=== PATIENT | male | born 1980 | race Two or more races ===

== ENCOUNTER 2020-11-01 04:09 | Emergency (ER) | payer SELFPAY ==
[~2020-11-01] VITALS: Ht 162.6 cm; Wt 79.4 kg
--- NOTE | 2020-11-01 04:10 | NUR ---
PT [id number] WITH [employer] B[employer]AR[employer] BEHAVIOR, WALKING IN THE STREET NAKED, CURSING NAD TALKING TO SELF. RESPIRATIONS EVEN AND UNLABORED ON RA W/ NAD NOTED. PT CHANGED INTO GOWN, BELONGINGS PLACED TO LOCKER. SITTER AT BEDSIDE FOR SAFETY.
[2020-11-01] MEDS ORDERED: LIDOCAINE 2% JEL UROJET 10 ML MM ONE ×2 (04:21→04:30)
--- NOTE | 2020-11-01 04:22 | NUR ---
DYNAMIC BALANCER SET UP WORKER AT BEDSIDE FOR BLOOD DRAW
[2020-11-01 04:28] LABS: BASOPHILS % (AUTO) 0.6 % (0.0-2.0); EOSINOPHILS % (AUTO) 2.2 % (0.0-6.0); HEMATOCRIT 42 % (39-51); LYMPHOCYTES # (AUTO) 1.1 /CMM (0.8-4.8); MEAN CORPUSCULAR HGB CONC 33 g/dl (31.0-36.0); MEAN CORPUSCULAR VOLUME 89 fL (80-96); MONOCYTES # (AUTO) 0.5 /CMM (0.1-1.30); MONOCYTES % (AUTO) 7.1 % (2.0-12.0); NEUTROPHILS # (AUTO) 5.1 /CMM (1.8-8.9); NEUTROPHILS % (AUTO) 74.1 % (43.0-81.0); PLATELET COUNT (AUTO) 437 /CMM (150-450); RED BLOOD CELL COUNT(AUTO) 4.75 MIL/uL (4.5-6.0); WHITE BLOOD COUNT (AUTO) 6.8 K/uL (4.3-11.0)
[2020-11-01 04:35] LABS: CALCIUM, SERUM 8.8 mg/dL (8.5-10.1); CARBON DIOXIDE 24 mmol/L (21-32); CHLORIDE 104 mmol/L (98-107); CREATININE 0.5 mg/dL (0.6-1.3); GLUCOSE 99 mg/dL (74-106); POTASSIUM 3.9 mmol/L (3.5-5.1); SODIUM SERUM 139 mmol/L (136-145); UREA NITROGEN, BLOOD 12 mg/dL (7-18)
[2020-11-01 04:41] LABS: ACETAMINOPHEN < 10 ug/ml (10-30); ALANINE AMINOTRANSFERASE 53 U/L (12-78); ALBUMIN 3.7 g/dL (3.4-5.0); ALCOHOL, BLOOD < 3 mg/dL (0-0); ALKALINE PHOSPHATASE 122 U/L (46-116); ASPARTATE AMINOTRANSFERASE 30 U/L (15-37); BILIRUBIN,DIRECT 0.2 mg/dL (0.0-0.2); BILIRUBIN,TOTAL 0.7 mg/dL (0.2-1.0); TOTAL PROTEIN, SERUM 7.3 g/dL (6.4-8.2)
[2020-11-01 05:49] LABS: BILIRUBIN,URINE Negative (NEGATIVE); BLOOD, URINE Negative Ery/uL (NEGATIVE); COLOR,URINE YELLOW (YELLOW); LEUKOCYTE ESTERASE ,URINE Negative (NEGATIVE); NITRITE, URINE Negative (NEGATIVE); PROTEIN,URINE Negative (NEGATIVE); UGLUCOSE Negative (NEGATIVE)
--- NOTE | 2020-11-01 05:50 | NUR ---
PT DENIES SI AND HI. PT DENIES BEING HOMELESS. CLOTHES PROVIDED TO THE PT. PT AMBULATED OUT OF E.D. DID NOT WANT TO WAIT FOR DISCHRAGE PAPERWORK.
--- NOTE | 2020-11-01 06:01 | NUR ---
PATIENT IS [id number]. PATIENT DENIES SI/ HI. MD NOTIFIED.
[2020-11-01 06:06] LABS: BACTERIA,URINE None seen /HPF (None Seen); RBC,URINE 0-2 /HPF (0-2); SQUAMOUS EPITHELIAL CELL,UR Few /HPF (None Seen); WBC,URINE 0-2 /HPF (0-3)
[2020-11-01 06:09] VITALS: BP 129/79
--- NOTE | 2020-11-01 06:09 | NUR ---
PATIENT PROVIDED CLOTHINGS.
--- NOTE | 2020-11-01 06:09 | NUR ---
Patient discharged to home in stable condition. Written and verbal after care instructions given. Patient verbalizes understanding of instruction.
== END 2020-11-01 06:09 | disposition home or self-care (01) ==
LOC: EDBD 04:12 → ER 04:12
DX: R46.2 Strange and inexplicable behavior (principal)
CPT/HCPCS: 36415; 80048; 80076; 80299; 80307; 80320; 81001; 85025; 87426; 99283; C9803; J3490; G0480

== ENCOUNTER 2024-03-09 05:38 | Emergency (ER) | payer OTHER ==
[~2024-03-09] VITALS: Ht 167.6 cm; Wt 83.9 kg
[2024-03-09 06:22] VITALS: BP 123/79; TEMP 98.1; O2SAT 99
[2024-03-09] MEDS ORDERED: MAG HYDROX/AL HYDROX/SIMETH 30 ML UDC ONE (06:30)
[2024-03-09] MEDS ORDERED: FAMOTIDINE (20 MG) 20 MG TABLET ONE (06:31)
[2024-03-09] MEDS: FAMOTIDINE (20 MG) 20 MG TABLET PO ONE (06:33)
[2024-03-09] MEDS: MAG HYDROX/AL HYDROX/SIMETH 30 ML UDC PO ONE (06:33)
[2024-03-09] MEDS ORDERED: FAMO20TA8 PO (06:52)
== END 2024-03-09 07:06 | disposition home or self-care (01) ==
LOC: ER 05:42
DX: K21.9 Gastro-esophageal reflux disease without esophagitis (principal); F90.9 Attention-deficit hyperactivity disorder, unspecified type

== ENCOUNTER 2024-12-23 07:45 | Emergency (ER) | payer OTHER ==
[~2024-12-23] VITALS: Ht 167.6 cm; Wt 75.3 kg
[~2024-12-23 07:45] MED LIST: FAMO20TA8 PO
[2024-12-23 08:08] VITALS: BP 136/69; TEMP 97.9; O2SAT 99
== END 2024-12-23 09:35 | disposition home or self-care (01) ==
LOC: ER 07:46
DX: M79.641 Pain in right hand (principal); Z60.2 Problems related to living alone
CPT/HCPCS: 73130-TC

== ENCOUNTER 2025-07-26 23:14 | Emergency (ER) | payer OTHER | END 2025-07-27 00:11 | disposition left against medical advice (07) | LOC: ER 23:26 | DX: T16.9XXA Foreign body in ear, unspecified ear, initial encounter (principal); Z53.21 Procedure and treatment not carried out due to patient leaving prior to being seen by health care provider; W44.9XXA Unspecified foreign body entering into or through a natural orifice, initial encounter; Y93.89 Activity, other specified; Y92.89 Other specified places as the place of occurrence of the external cause; Y99.8 Other external cause status ==

== ENCOUNTER 2025-07-27 00:47 | Emergency (ER) | payer OTHER | END 2025-07-27 01:01 | disposition left against medical advice (07) | LOC: ER 00:52 | DX: T16.9XXA Foreign body in ear, unspecified ear, initial encounter (principal); Z53.21 Procedure and treatment not carried out due to patient leaving prior to being seen by health care provider; W44.9XXA Unspecified foreign body entering into or through a natural orifice, initial encounter; Y93.89 Activity, other specified; Y92.89 Other specified places as the place of occurrence of the external cause; Y99.8 Other external cause status ==

== ENCOUNTER 2025-07-31 17:45 | Emergency (ER) | payer OTHER ==
[~2025-07-31] VITALS: Ht 165.1 cm; Wt 59.0 kg
[2025-07-31 18:15] VITALS: BP 140/87; TEMP 98.5; O2SAT 99
== END 2025-07-31 18:16 | disposition home or self-care (01) ==
LOC: ER 17:49
DX: F19.10 Other psychoactive substance abuse, uncomplicated (principal); Z60.2 Problems related to living alone; Z79.899 Other long term (current) drug therapy

== ENCOUNTER 2025-09-26 15:02 | Emergency (ER) | payer OTHER ==
[~2025-09-26] VITALS: Ht 165.1 cm; Wt 61.2 kg
[2025-09-26 15:49] LABS: PLATELET COUNT (AUTO) 381 K/uL (150-450); RED BLOOD CELL COUNT(AUTO) 4.68 MIL/uL (4.5-6.0); RED CELL DISTRIBUTION WIDTH 13.3 % (11.5-15.0); WHITE BLOOD COUNT (AUTO) 11.8 K/uL (4.3-11.0)
[2025-09-26 15:58] LABS: CALCIUM, SERUM 9.4 mg/dL (8.5-10.1); CREATININE 1.2 mg/dL (0.6-1.3); SODIUM SERUM 146 mmol/L (136-145); UREA NITROGEN, BLOOD 25 mg/dL (7-18)
[2025-09-26 16:03] LABS: ASPARTATE AMINOTRANSFERASE 44 U/L (15-37); TOTAL PROTEIN, SERUM 7.6 g/dL (6.4-8.2)
[2025-09-26 16:05] LABS: APPEARANCE,URINE SLIGHTLY CLOUDY (CLEAR); BLOOD, URINE TRACE-INTA Ery/uL (NEGATIVE); LEUKOCYTE ESTERASE ,URINE NEGATIVE (NEGATIVE); NITRITE, URINE NEGATIVE (NEGATIVE); UGLUCOSE NEGATIVE (NEGATIVE)
[2025-09-26 16:06] LABS: BARBITURATE, URINE NEGATIVE (NEGATIVE); CANNABINOID, URINE NEGATIVE (NEGATIVE); COCCAINE, URINE NEGATIVE (NEGATIVE); OPIATE, URINE NEGATIVE (NEGATIVE)
[2025-09-26 16:08] LABS: AMPHETAMINE, URINE POSITIVE (NEGATIVE); BENZODIAZEPINE, URINE POSITIVE (NEGATIVE)
[2025-09-26 16:20] LABS: ADD URINE CULTURE YES; COARSE GRANULAR CASTS,URINE Moderate /LPF (None Seen)
[2025-09-26 16:21] LABS: SQUAMOUS EPITHELIAL CELL,UR Moderate /HPF (None Seen)
[2025-09-26 17:49] VITALS: BP 119/66; TEMP 98.5; O2SAT 96
== END 2025-09-26 17:49 ==
LOC: ER 15:05
DX: F15.10 Other stimulant abuse, uncomplicated (principal); Z59.00 Homelessness unspecified; Z65.3 Problems related to other legal circumstances; Z76.5 Malingerer [conscious simulation]; Z78.1 Physical restraint status; Z79.899 Other long term (current) drug therapy
CPT/HCPCS: 36415; 80048-TC; 80076-TC; 81001; 85025-TC; 87086-TC